=== PATIENT | male | born 1950 | race Caucasian/White ===

== ENCOUNTER → 2018-04-16 08:30 | Outpatient (CLI) | payer MEDICARE, SELFPAY ==
[2018-04-16 08:59] LABS: Blood Urea Nitrogen 14 mg/dL (7-18); Creatinine,Serum 0.84 mg/dL (0.70-1.30); Estimated Glomerular Filt Rate 91 ml/min (>60); GFR (African American) 110 ML/MIN (>60)
--- NOTE | 2018-04-16 09:09 | CT_ITS ---
CT abdomen w con INDICATION: ITS.REASON: NONALCOHOLIC FATTY LIVER ORDERING PHYSICIAN: Mason Baeza MD PATIENT AGE: 68 years COMPARISON: CT abdomen and pelvis from March 2015. & May 2004 TECHNIQUE: 75 cc [id number] were utilized with 3 phase scanning:. This includes early arterial scan, portal venous phase images as well as delayed images through abdomen. Abdomen only scant pelvis not included. No oral contrast utilized FINDINGS Lung bases are clear. No active disease. Heart is normal in size. Spleen, pancreas, unremarkable. Adrenal satisfactory, stable. LIVER previous studies from 2003 and 2014 showed diffuse fatty changes of the liver. There is a a focus of early arterial enhancement which persists on venous and delayed images. This area Seen at the anterior dome of liver. & measures up to nearly 25 mm wide x 15 mm AP, 2 cm height. It was not present in 2014 nor 2003. Most important feature is it does not persistent contrast lingering on the delayed 5 minute image set. This characteristic supports its benign indolent nature. (Discussion: Significant vascular lesions &neoplasm the liver, demonstrate contrast washout x 5 minute. This current pattern of lingering contrast at 5 minutes supports benign feature/indolent feature. Considerations: benign hemangioma of liver; particularly noting that the intensity on delayed image is similar to the background blood pool contrast density.. This area does not show peripherally seen with most liver hemangiomas but they can at times demonstrate rapid flash filling. . Focal fatty sparing is also a high possibility; but this pattern is a change since in 2014. This area can be followed. Benign Adenoma is also considered.. Doubt benign FNH . Small portal venous collateral leading anterior liver from region of falciform ligament and continuing towards umbilicus through anterior abdomen is again noted and unchanged... Seen on previous studies 2014, 2003.. Portal vein appears generous size measuring 15-16 mm AP but this is similar to 2015.. No additional unremarkable collaterals seen elsewhere & spleen is not enlarged. Kidneys. No tract obstruction or mass. Left kidney. The previously noted nonobstructive stone lower pole left kidney is seen in 2014 is no longer evident. The ureters are normal in course and caliber bilaterally. No bowel dilatation or obstruction. Appendix visualized and normal. No retroperitoneal or mesenteric adenopathy. There is a 2.3 cm x 1.3 cm ovoid mass just beneath the skin and subcutaneous tissues to the left of midline at the mid back. This is seen Just overlying the lowest ribs, axial slice 22. It has enlarged since previous studies and thus does warrant evaluation and correlation. Could merely be a benign sebaceous abnormality but nonspecific on CT IMPRESSION: ...... 1. Diffuse fatty changes in liver again observed. 2..Enhancing area anterior dome liver. 2.5 CM... Was not seen previous CT . early arterial enhancement reflects basilar character but it also demonstrates persistent enhancement on 5 minute delayed image set.-The latter features speaks to its benign character. Suspect it reflects benign hemangioma or a prominent area of focal fatty sparing. Benign Hepatic adenoma also considered. (. Suggest ultrasound to further survey although this area, although may be very difficult to visualize given its far anterior superior aspect towards the very dome of the liver).. Also suggest a follow-up CT or MRI liver with in 4-6 months suggested confirm stability at this early enhancing lesion. 3.Ovoid SQ mass beneath the skin at the left mid back, overlying lower ribs. It is larger than on 2015. . Most likely benign feature but warrants correlation decreased sensitivity has enlarged 4. Borderline
--- NOTE | 2018-04-16 10:33 | HMH.ITSHM ---
FLECARINIDE,BYSTOLIC,ELIQUIS,OLMESARTON AMLODI[INE,HCTZ,DOXASOSIN,ASPIRIN,POTASSIUM
== END ==
PROVIDERS: Family Provider Family Medicine; PCP Family Medicine; Visit Provider Family Medicine
DX: K76.0 Fatty (change of) liver, not elsewhere classified (principal)
CPT/HCPCS: 36415; 74160; 82565; 84520; Q9967

== ENCOUNTER → 2018-07-09 14:54 | Outpatient (CLI) | payer MEDICARE, SELFPAY ==
--- NOTE | 2018-07-09 14:55 | CA_ITS ---
PROCEDURE: 2-D M-mode and color Doppler study INDICATIONS FOR THE TEST: Chest pain COPD Heart Murmur Tobacco Smoking Palpitations Fatigue Syncope Edema Hypertension+Diabetes Mellitus Rheumatic Fever SOB+COOK Obesity Hyperlipidemia Family History HD Additional History abn ekg, a-fib, prior cardioversion 05/15 PATIENT INFORMATION HEIGHT: 70 WEIGHT:206 GENDER: Male B/P:135/83 2-D/M-MODE INTERPRETATION: 2-D MEASUREMENTS OBSERVED VALUES IN CMS Right Ventricular Dimension (RVDd) 0.9 Interventricular Septum (Thickness)(IVsd) 0.8 Left Ventricular Internal Dimensions(LVIDd) 5.3 Left Ventricular Posterior Wall (Thickness)(LVPWd) 1.2 Aortic Root 2.7 Aortic Cusp Separation 1.6 Left Atrial Dimensions (LAD) 4.1 2D 1. Left atrium is mildly enlarged, left ventricle is normal size, mild concentric left ventricular hypertrophy, visually estimated ejection fraction 55% with no regional wall motion abnormality. 2. The right atrium and right ventricle are normal size and contractility. 3. The aortic valve is minimally thickened and calcified. 4. The mitral and tricuspid valvular grossly normal. 5. The pulmonic valve is poorly visualized. 6. No significant pericardial effusion noted. DOPPLER INTERROGATION: Doppler interrogation of the aortic, mitral and tricuspid valvular presence of trace aortic, mild mitral and tricuspid regurgitation, tricuspid regurgitation jet velocity is inadequate for calculation of the right ventricular systolic pressure, grade 1 diastolic dysfunction seen with tissue Doppler evidence of raised left atrial pressure. CONCLUSION: 1. Mildly enlarged left atrium, normal left ventricular size, mild concentric left ventricular hypertrophy, visually estimated ejection fraction of 55% with no regional wall motion abnormality, grade 1 diastolic dysfunction seen with tissue Doppler evidence of raised left atrial pressure. 2. Trace aortic, mild mitral and tricuspid regurgitation 3. No significant pericardial effusion noted.
== END ==
PROVIDERS: PCP Family Medicine; Visit Provider Internal Medicine Cardiovascular Disease
DX: I10 Essential (primary) hypertension (principal); I48.92 Unspecified atrial flutter; N40.0 Benign prostatic hyperplasia without lower urinary tract symptoms; R06.00 Dyspnea, unspecified
CPT/HCPCS: 93306

== ENCOUNTER 2018-11-13 16:47 | Inpatient (IN) ==
--- NOTE | 2018-11-13 17:20 | Emergency Department Note ---
ED Disposition Clinical Impression: Rapid atrial fibrillation, Hypokalemia Disposition: Home, Self-Care Condition on Discharge: Fair - Critical Care Critical Care Time: Yes Attestation: On 11/13/18, the high probability of a clinically significant, sudden or life threatening deterioration of the following system(s) required my full and direct attention, intervention and personal management. The time I documented below is in addition to time spent performing reported procedures but includes the following listed in this critical care notation. Total Critical Care Time: 30 Vital system(s) involved:: Circulatory Failure My critical care processes included: Assessment & monitoring of V/S, Initial and Re-exams, Data Review/Interpretation, Coordinating Care, Medication Orders and management, Documentation Medical Decision Making - Jd Inquiry Pt receiving controlled substance: No Vital Signs: 11/13/18 17:13 11/13/18 19:35 Temperature 97.8 F Temperature Source Oral Pulse Rate [Right Brachial] 131 H 108 H Respiratory Rate 15 15 Blood Pressure [Right Arm] 132/98 H 144/103 H Blood Pressure Mean [Right Arm] 109 116 Blood Pressure Source [Right Arm] Automatic Cuff Blood Pressure Position [Right Arm] Sitting 02 Sat by Pulse Oximetry 100 93 L Oxygen Delivery Method Room Air Room Air - Lab Data Lab Results 11/13/18 17:10: WBC 9.2, RBC 5.02, Hgb 15.8, Hct 46.3, MCV 92.2, MCH 31.4 H, MCHC 34.1, RDW 12.7, Plt Count 132 L, MPV 7.9, Neut % (Auto) 75.8, Lymph % (Auto) 17.5, [place] % (Auto) 6.3, Eos % (Auto) 0.2, Baso % (Auto) 0.3, Neut # (Auto) 7.0, Lymph # (Auto) 1.6, [place] # (Auto) 0.6, Eos # (Auto) 0.0, Baso # (Auto) 0.0 11/13/18 17:10: Sodium 138, Potassium 2.9 L*, Chloride 98, Carbon Dioxide 30, Anion Gap 12.9, BUN 9, Creatinine 0.88, Estimated Creat Clear 76, Estimated GFR 86, Est GFR ( Amer) 105, Glucose 162 H, Calcium 9.3, Total Bilirubin 1.1 H, AST 144 H, ALT 224 H, Alkaline Phosphatase 68, Troponin I < 0.02, Total Protein 7.8, Albumin 3.8, Globulin 4.0 H, Albumin/Globulin Ratio 1.0 L, Digoxin 0.59 L Result diagrams: 11/13/18 17:10 11/13/18 17:10 Orders (Tests/Meds): ED MEDICATIONS Generic Name Dose Route Start Last Admin Trade Name Geraldq PRN Reason Stop Dose Admin Carvedilol 25 mg 11/13/18 21:00 Coreg 25mg Tablet PO 12/13/18 20:59 BID ABDIRIZAK Digoxin 125 mcg 11/14/18 09:00 Digoxin 0.125mg Tablet PO 12/14/18 08:59 DAILY ABDIRIZAK Sodium Chloride 1,000 mls @ 100 mls/hr 11/13/18 19:40 Sod Chlor 0.9% 1000ml Bag IV 12/13/18 18:29 .Q10H ABDIRIZAK Diltiazem HCl 100 mg/ Sodium 100 mls @ 5 mls/hr 11/13/18 19:40 Chloride IV 12/13/18 17:49 .Q20H [facility] Protocol Non-Formulary Medication 5 mg 11/13/18 21:00 Apixaban [Eliquis] PO 12/13/18 20:59 BID ABDIRIZAK Non-Formulary Medication 1 tab 11/14/18 09:00 Olmesartan/Amlodipin/Hcthiazid [Tbonxln-Anvmcq-Ieyi 40-5-25 Mg] PO 12/14/18 08:59 DAILY ABDIRIZAK Non-Formulary Medication 20 meq 11/13/18 21:00 Potassium Chloride [Potassium Chloride] PO 12/13/18 20:59 TID ABDIRIZAK Non-Formulary Medication 3 mg 11/13/18 21:00 Doxazosin Mesylate [Doxazosin 2mg Tab] PO 12/13/18 20:59 HS ABDIRIZAK Discontinued Medications Generic Name Dose Route Start Last Admin Trade Name Freq PRN Reason Stop Dose Admin Diltiazem HCl 10 mg 11/13/18 17:35 11/13/18 17:48 Cardizem 25mg/5ml Vial IV 11/13/18 17:36 10 mg ONCE ONE Administration Diltiazem HCl 10 mg 11/13/18 18:58 11/13/18 19:06 Cardizem 25mg/5ml Vial IV 11/13/18 18:59 10 mg ONCE ONE Administration Sodium Chloride 1,000 mls @ 999 mls/hr 11/13/18 17:30 11/13/18 17:24 Sod Chlor 0.9% 1000ml Bag IV 11/13/18 18:30 999 mls/hr .Q1H1M ABDIRIZAK Administration Diltiazem HCl 100 mg/ Sodium 100 mls @ 5 mls/hr 11/13/18 17:50 11/13/18 17:51 Chloride IV 12/13/18 17:49 5 mls/hr .Q20H ABDIRIZAK Administration Protocol Sodium Chloride 1,000 mls @ 100 mls/hr 11/13/18 18:30 11/13/18 18:24 Sod Chlor 0.9% 1000ml Bag IV 12/13/18 18:29 100 mls/hr .Q10H ABDIRIZAK Administration Potassium Chloride 40 meq 11/13/18 18:58 11/13/18 19:12 Klor-Con 20meq Tablet PO 11/13/18 18:59 40 meq ONCE ONE Administration Potassium Chloride/Water 20 meq 11/13/18 18:58 Potassium Chloride 20meq/100ml Ivpb IV 11/13/18 18:59 ONCE ONE Promethazine HCl 12.5 mg 11/13/18 18:18 11/13/18 18:19 Phenergan 25mg/Ml 1ml Vial IV 11/13/18 18:19 12.5 mg ONCE ONE Administration Sodium Chloride 25 ml 11/13/18 18:18 11/13/18 18:19 Sod Chlor 0.9% 25ml Bag IV 11/13/18 18:19 25 ml ONCE ONE Administration ORDERS Category Date Time Status XR chest portable Stat Exams 11/13/18 17:21 Taken - ECG Data Tracing #1 EKG interpreted by Jc Man MD: Rhythm: Atrial fibrillation with rapid ventricular response Rate: 142 [place]: normal Ectopy: none Conduction: normal ST Segment Changes: Nonspecific T Wave Changes: Nonspecific Q Waves: none No evidence of acute ischemia or injury Baseline artifact present, but I consider the EKG adequate for accurate interpretation. - Physician Consults Physician Consulted: Naveed Time: 19:09 Reason -: Cardiology Eval/Care Comment/Response: Continue diltiazem drip. Double dose of Bystolic to 20 mg daily. Resume Eliquis, starting tonight. Additional Consult: Areli Baeza Time: 19:25 Reason -: Admission Comment/Response: Agrees to admit the patient to the hospital. We discussed the patient's clinical information, including history, exam, laboratory and radiology results and ED course. Per hospital procedure, I will write temporary bridge inpatient orders on the patient. Specific orders requested by the admitting physician: Per cardiology General Adult HPI - General Stated complaint: Abnormal heartbeat Time Seen by Provider: 11/13/18 17:19 - History of Present Illness HPI narrative: Patient has known paroxysmal atrial fibrillation/flutter. Seen in this emergency department last . Flecainide was stopped and he was started on digoxin. On Monday he was admitted to [facility] for a liver ablation. He says that today he was not given his digoxin the morning at 7 AM as he would normally take it, but he did take it 1 PM. He is also late on his potassium dose. He was discharged from the hospital today on Levaquin. About 2 hours after arriving home after discharge today he developed a rapid heartbeat. Denies chest pain or shortness of breath. He has been off of Eliquis since last Monday 1 week ago, but was given a shot of Lovenox yesterday. He is on Levaquin 500 mg once a day since his procedure. - Related Data Home Medications Medication Instructions Recorded Confirmed Apixaban [Eliquis] 5 mg PO BID 05/17/18 11/08/18 Doxazosin Mesylate [Doxazosin 2mg 3 mg PO HS 05/17/18 11/08/18 Tab] Nebivolol HCl [Bystolic] 10 mg PO DAILY 05/17/18 11/08/18 Olmesartan/Amlodipin/Hcthiazid 1 tab PO DAILY 05/17/18 11/08/18 [Eyztvfy-Yprhzf-Vsrh 40-5-25 mg] potassium chloride ER 20 mEq 20 meq PO TID tab 07/05/18 11/08/18 tablet,extended release Previous Rx's Medication Instructions Recorded digoxin 125 mcg tablet 0.125 mg PO DAILY #30 tab 11/08/18 Allergies Allergy/AdvReac Type Severity Reaction Status Date / Time ibuprofen Allergy Unknown Verified 08/09/18 11:35 allergy reaction naproxen Allergy Unknown Verified 08/09/18 11:35 allergy reaction [facility] History - Hepatitis A Screen Attestation statement:: This patient has been screened for Hepatitis A risk factors. I have reviewed the patient's past medical history: Yes Medical History: Reports:: Atrial Fibrillation, Hepatitis, Hypertension Denies:: Diabetes Mellitus Type 1, Diabetes Mellitus Type 2, Internal Pacemaker Laterality Cases: Bilateral: Tonsillectomy Other Surgeries: Yes: Cholecystectomy, Colonoscopy, Other (Sarcome removed from Vas Deferens, Right testicle removed, Varicose Veins). No: Pacemaker Comment: Root canal - Social History Smoking Status: Former smoker Alcohol Intake: never Substance Use Type: denies use Occupational Status: retired Family Hx:: Cancer, Diabetes, Hypertension, Coronary Artery Disease Comment: Mother-ASD ROS Obtained: Yes All systems reviewed & no additional complaints - Constitutional Constitutional: Denies fever(s) - Cardiovascular Cardiovascular: Denies chest pain, Reports irregular heart rhythm, Reports rapid heart rate - Respiratory Respiratory: No dyspnea - Gastrointestinal Gastrointestingal: Denies: abdominal pain, vomiting Physical Exam - General General appearance: alert, in no apparent distress - Head Head exam: atraumatic, normocephalic - Eye Eye exam: Present: normal appearance, PERRL, EOMI - ENT ENT exam: Present: mucous membranes moist - Neck Neck exam: Present: normal inspection, trachea midline - Chest Chest inspection: Present: normal inspection, symmetric chest wall rise - Respiratory Respiratory exam: Present: normal lung sounds bilaterally. Absent: respiratory distress - Cardiovascular Cardiovascular exam: Present: tachycardia, irregular rhythm, normal heart sounds - Abdominal Exam Abdominal exam: Present: soft. Absent: distention, tenderness - Extremities Exam Extremities exam: Present: normal inspection, full ROM - Neurological Exam Neurological exam: Present: alert, oriented X3 - Psychiatric Psychiatric exam: Present: normal affect, normal mood - Skin Skin exam: Present: warm, dry
[2018-11-13 18:20] LABS: Basophils % 0.3 % (0.1-2.0); Eosinophils % 0.2 % (0.1-12.0); Hematocrit 46.3 % (42.0-52.0); Hemoglobin 15.8 g/dL (14.1-18.0); Lymphocytes # 1.6 K/mm3 (0.7-4.5); Lymphocytes % 17.5 % (10-50); Mean Corpuscular HGB Conc 34.1 g/dL (31.8-35.4); Mean Corpuscular Hemoglobin 31.4 pg (27.0-31.2); Mean Corpuscular Volume 92.2 fl (80-94); Mean Platelet Volume 7.9 fl (7.4-10.4); Monocytes # 0.6 K/mm3 (0.1-1.0); Monocytes % 6.3 % (1.7-9.3); Neutrophils % 75.8 % (37.0-80.0); Platelet Count 132 K/mm3 (142-424); Red Blood Count 5.02 M/mm3 (4.60-6.20); Red Cell Distribution Width 12.7 % (11.5-17.5); White Blood Count 9.2 K/mm3 (4.8-10.8)
[2018-11-13 18:29] LABS: Alanine Aminotransferase 224 U/L (12-78); Albumin Level 3.8 gm/dL (3.4-5.0); Alkaline Phosphatase 68 U/L (46-116); Anion Gap 12.9 mEq/L (5-15); Aspartate Amino Transferase 144 U/L (15-37); Bilirubin,Total 1.1 mg/dL (0.2-1.0); Blood Urea Nitrogen 9 mg/dL (7-18); Calcium 9.3 mg/dL (8.5-10.1); Carbon Dioxide 30 mmol/L (21.0-32.0); Chloride 98 mmol/L (98-107); Digoxin 0.59 ng/mL (0.90-2.00); Glucose 162 mg/dL (74-106); Sodium 138 mmol/L (136-145); Total Protein,Serum 7.8 gm/dL (6.4-8.2)
[2018-11-13 18:38] LABS: Potassium 2.9 mmoL/L (3.5-5.1)
[2018-11-14 06:15] LABS: Anion Gap 9.9 mEq/L (5-15); Calcium 8.4 mg/dL (8.5-10.1)
[2018-11-14 06:20] LABS: Potassium 2.9 mmoL/L (3.5-5.1)
--- NOTE | 2018-11-14 07:43 | Pharmacy Consult Notes ---
[facility] Pharmacy VTE Monitoring - Patient Demographics Admission date: 11/13/18 Report Date: 11/14/18 Time: 07:42 Allergies/Adverse Reactions: Patient Allergies ibuprofen Allergy (Verified 08/09/18 11:35) Unknown allergy reaction naproxen Allergy (Verified 08/09/18 11:35) Unknown allergy reaction Height: 1.78 m Weight: 91.626 kg Patient Problems: Current Active Problems Rapid atrial fibrillation (Acute) Hypokalemia (Acute) - VTE Risk Labs: VTE Related Lab Results Hgb 15.8 g/dL (14.1-18.0) 11/13/18 17:10 Hct 46.3 % (42.0-52.0) 11/13/18 17:10 Plt Count 132 K/mm3 (142-424) L 11/13/18 17:10 BUN 8 mg/dL (7-18) 11/14/18 05:17 Creatinine 0.60 mg/dL (0.70-1.30) L D 11/14/18 05:17 Estimated Creat Clear 93 mL/min (50-200) 11/14/18 05:17 Was VTE Risk Assessment Performed: Yes VTE Score: 4 VTE Risk Level: Low Risk - Prophylaxis VTE Prophylaxis Ordered?: Yes Types of VTE Prophylaxis: TEDS Knee High, Pharmacological Location of Applied Device: Bilateral Lower Extremeties Pharmacologic Type: Other (ELIQUIS) - VTE Diagnosis Confirmed Treatment or plan recommended: Continue Current Treatment
--- NOTE | 2018-11-14 08:33 | History & Physical Report ---
*Admission Date: 11/13/18 *Chief complaint: heart palpitations *History of present illness: Mr. Hurd is a 68-year-old white male with a history of paroxysmal atrial fib. He states over the past month he has had approximately 5 episodes of atrial fib. When he intially began having episodes, they were only lasting approximately 30 seconds, but last week, it lasted for 2 days and he presented to the emergency room. At that time, cardiology stopped his flecainide and started him on digoxin. He was doing well until Monday when he had a liver ablation for liver cancer. He states his medication was all held for this procedure and when he went home on Monday, he was sent home with a prescription for Levaquin. Yesterday around 4 PM he went into atrial fib. He presented to the emergency room and his heart rate was 130-135. He was started on a Cardizem drip and was given carvedilol. His potassium was found to be low, therefore it was replaced. He states he did convert back into normal sinus rhythm and his been in rhythm all night. He is feeling much better this morning. Cardiology has been c onsulted. [facility] History Medical History: Reports:: Arrhythmia, Atrial Fibrillation, Cancer (liver), Hepatitis, Hypertension, Palpitations Denies:: Diabetes Mellitus Type 1, Diabetes Mellitus Type 2, Internal Pacemaker, Transient Ischemic Attacks (TIA) *Have you ever received a pneumonia vaccine?: Yes *Have you received a flu vaccine this season?: Yes Other Medical History: Reports: Arthritis Laterality Cases: Bilateral: Tonsillectomy Other Surgeries: Yes: Cholecystectomy, Colonoscopy, Other (Sarcome removed from Vas Deferens, Right testicle removed, Varicose Veins). No: Pacemaker Fractures: Yes (hand, feet) Comment: Laparoscopy liver, Ablation of liver cancer - *Social History Educational Level: Attended [employer] Smoking Status: Former smoker Tobacco Type: cigarettes # Packs/Day (cigarettes): 1 Alcohol Intake: former Substance Use Type: denies use *Occupational Status:: retired Housing: house Household Members: spouse *Travel in the last 8 weeks: None - Psychiatric History Expresses thoughts of harming self/others: None Suicide Plan Description: No Plan Family Hx:: Cancer, Diabetes, Hypertension, Coronary Artery Disease Review of Systems - Constitutional Reports fever(s), Reports weakness, Denies chills - Eyes Denies blurry vision, Denies double vision - ENT Reports nasal congestion, Denies sore throat - *Cardiovascular Reports rapid, pounding, or irregular heartbeat, Denies chest pain, Denies shortness of breath - *Respiratory Denies cough, Denies shortness of breath - *Gastrointestinal Reports abdominal pain (RUQ), Reports nausea, Denies loose stools, Denies vomiting - *Genitourinary Reports urinary frequency, Denies difficulty urinating, Denies painful urination - *Musculoskeletal Denies joint pain, Denies body aches - *Neurologic Reports headache(s), Reports weakness, Denies dizziness Meds Home Medications Medication Instructions Recorded Confirmed Type Apixaban [Eliquis] 5 mg PO BID 05/17/18 11/13/18 History Doxazosin Mesylate [Doxazosin 2mg 3 mg PO HS 05/17/18 11/13/18 History Tab] Nebivolol HCl [Bystolic] 10 mg PO DAILY 05/17/18 11/13/18 History Olmesartan/Amlodipin/Hcthiazid 1 tab PO DAILY 05/17/18 11/13/18 History [Xfkvnik-Mssdfk-Tiuh 40-5-25 mg] potassium chloride ER 20 mEq 20 meq PO TID tab 07/05/18 11/13/18 History tablet,extended release digoxin 125 mcg tablet 0.125 mg PO DAILY #30 tab 11/08/18 11/13/18 Rx Allergies Allergy/AdvReac Type Severity Reaction Status Date / Time ibuprofen Allergy Unknown Verified 08/09/18 11:35 allergy reaction naproxen Allergy Unknown Verified 08/09/18 11:35 allergy reaction Exam Vital signs and Labs for Last 24 Hours: Temp Pulse Resp BP Pulse Ox 98.4 F 63 19 130/69 93 L 11/14/18 00:26 11/14/18 06:00 11/14/18 06:00 11/14/18 06:00 11/14/18 06:00 Laboratory Results - last 24 hr 11/13/18 17:10: WBC 9.2, RBC 5.02, Hgb 15.8, Hct 46.3, MCV 92.2, MCH 31.4 H, MCHC 34.1, RDW 12.7, Plt Count 132 L, MPV 7.9, Neut % (Auto) 75.8, Lymph % (Auto) 17.5, [place] % (Auto) 6.3, Eos % (Auto) 0.2, Baso % (Auto) 0.3, Neut # (Auto) 7.0, Lymph # (Auto) 1.6, [place] # (Auto) 0.6, Eos # (Auto) 0.0, Baso # (Auto) 0.0 11/13/18 17:10: Sodium 138, Potassium 2.9 L*, Chloride 98, Carbon Dioxide 30, Anion Gap 12.9, BUN 9, Creatinine 0.88, Estimated Creat Clear 76, Estimated GFR 86, Est GFR ( Amer) 105, Glucose 162 H, Calcium 9.3, Total Bilirubin 1.1 H, AST 144 H, ALT 224 H, Alkaline Phosphatase 68, Troponin I < 0.02, Total Protein 7.8, Albumin 3.8, Globulin 4.0 H, Albumin/Globulin Ratio 1.0 L, Digoxin 0.59 L 11/13/18 22:48: Troponin I < 0.02 11/14/18 01:46: Troponin I < 0.02 11/14/18 05:17: Sodium 140, Potassium 2.9 L*, Chloride 104, Carbon Dioxide 29, Anion Gap 9.9, BUN 8, Creatinine 0.60 L D, Estimated Creat Clear 93, Estimated GFR 134, Est GFR ( Amer) 163 D, Glucose 135 H, Calcium 8.4 L I & O for Last 24 hours: Intake & Output 11/11/18 11/12/18 11/13/18 11/14/18 11:59 11:59 11:59 11:59 Intake Total 3436 / 3436 Output Total 1400 / 1400 Balance 2035 / 2035 Weight 202 lb - Constitutional no acute distress - *Routine HEENT Exam Head: Present: normocephalic Eye: Present: EOMI, PERRL ENT: Present: mucous membranes dry - *Routine Neck Exam Present: supple. Absent: lymphadenopathy - *Routine Respiratory Exam Present: CTA bilaterally - *Routine Cardiovascular Exam Present: RRR - *Routine Abdominal Exam Present: soft, normoactive bowel sounds, tenderness (around recent surgical site) - *Routine Extremities Exam Absent: cyanosis, clubbing, edema - *Routine Skin Exam Present: warm, ecchymosis (RUQ). Absent: rash - *Routine Neurological Exam Present: alert, oriented X3 H&P: Result - Impressions CXR 1. Right basilar atelectasis. 2. Left basilar density which may be due to atelectasis. 3. suggest upright PA and lateral chest Assessment and Plan (1) Rapid atrial fibrillation Current visit: Yes Status: Acute Category: Medical Code(s): I48.91 - Unspecified atrial fibrillation (2) Hypokalemia Current visit: Yes Status: Acute Category: Medical Code(s): E87.6 - Hypokalemia (3) BPH (benign prostatic hyperplasia) Current visit: No Status: Chronic Qualifiers: Lower urinary tract symptom presence: unspecified whether lower urinary tract symptoms present Qualified Code(s): N40.0 - Benign prostatic hyperplasia without lower urinary tract symptoms Category: Medical Code(s): N40.0 - Benign prostatic hyperplasia without lower urinary tract symptoms (4) Hypertension Current visit: No Status: Chronic Qualifiers: Hypertension type: essential hypertension Qualified Code(s): I10 - Essential (primary) hypertension Category: Medical Code(s): I10 - Essential (primary) hypertension (5) VALVERDE (nonalcoholic steatohepatitis) Current visit: No Status: Chronic Category: Medical Code(s): K75.81 - Nonalcoholic steatohepatitis (VALVERDE) (6) Liver cancer Current visit: Yes Status: Chronic Category: Medical Code(s): C22.9 - Malignant neoplasm of liver, not specified as primary or secondary - Assessment and plan all Dx Assessment and Plan for all problems:: Patient's potassium was low on repeat labs. He was given a run this morning was started on 20 mEq 3 times daily. We will recheck the potassium at noon. Patient is now in normal sinus rhythm and cardiology has been consulted for further recommendations.
--- NOTE | 2018-11-14 10:01 | Consult Report ---
History of Present Illness Consult date: 11/14/18 Requesting physician: Mason Baeza Consult reason: atrial fibrillation Chief complaint: Palpitations, atrial fibrillation History of present illness: This is a 68-year-old white male who presented to the emergency department with complaints of palpitations and racing of the heart. The patient does have a history of paroxysmal atrial fibrillation. He has had several episodes in the past month. The patient had similar episodes last week lasting approximately 30 seconds. He states that this went on for 2 days and he did go to the emergency department. His flecainide was stopped and he was started on digoxin. He had did fine with his atrial fibrillation up until that point. On Monday the patient had a liver ablation for his liver cancer and his medications were held for that procedure. He states he went home and on Monday he felt his heart go back into atrial fibrillation with palpitations and racing of the heart. The patient decided to come into the emergency department and his heart rate was in the 140s. He was started on a diltiazem drip. He did convert to sinus rhythm. He has since been converted to oral Cardizem CD and remains in sinus rhythm. While here in the hospital the patient has been getting carvedilol as his beta- blockade. He reports that he is tolerating this medicine much better than the by systolic he is on at home. He states that when he is on Bystolic at home his heart tends to race more often. Upon admission, he was also found to be hypokalemic and remains hypokalemic today. He is getting his potassium repleted per his primary care provider. He denies any chest pain or pressure. He denies any shortness of breath or edema. He denies any fever chills nausea vomiting diarrhea PND or orthopnea. [facility] History I have reviewed the patient's past medical history: Yes Medical History: Reports:: Arrhythmia, Atrial Fibrillation, Cancer (liver), Hepatitis, Hypertension, Palpitations Denies:: Diabetes Mellitus Type 1, Diabetes Mellitus Type 2, Internal Pacemaker, Transient Ischemic Attacks (TIA) *Have you ever received a pneumonia vaccine?: Yes *Have you received a flu vaccine this season?: Yes Other Medical History: Reports: Arthritis Laterality Cases: Bilateral: Tonsillectomy Other Surgeries: Yes: Cholecystectomy, Colonoscopy, Other (Sarcome removed from Vas Deferens, Right testicle removed, Varicose Veins). No: Pacemaker Fractures: Yes (hand, feet) - *Social History Educational Level: Attended [employer] Smoking Status: Former smoker Tobacco Type: cigarettes # Packs/Day (cigarettes): 1 Alcohol Intake: former Substance Use Type: denies use *Occupational Status:: retired Housing: house Household Members: spouse *Travel in the last 8 weeks: None - Psychiatric History Expresses thoughts of harming self/others: None Suicide Plan Description: No Plan Family Hx:: Cancer, Diabetes, Hypertension, Coronary Artery Disease Meds Home Medications Medication Instructions Recorded Confirmed Type Apixaban [Eliquis] 5 mg PO BID 05/17/18 11/13/18 History Nebivolol HCl [Bystolic] 10 mg PO HS 05/17/18 11/14/18 History Olmesartan/Amlodipin/Hcthiazid 1 tab PO DAILY 05/17/18 11/13/18 History [Haaomji-Kdzskd-Tshp 40-5-25 mg] potassium chloride ER 20 mEq 20 meq PO TID tab 07/05/18 11/13/18 History tablet,extended release digoxin 125 mcg tablet 0.125 mg PO DAILY #30 tab 11/08/18 11/13/18 Rx Doxazosin Mesylate [Doxazosin 2mg 4 mg PO HS 11/14/18 11/14/18 History Tab] Allergies Allergy/AdvReac Type Severity Reaction Status Date / Time ibuprofen Allergy Unknown Verified 08/09/18 11:35 allergy reaction naproxen Allergy Unknown Verified 08/09/18 11:35 allergy reaction Review of Systems - Review of Systems Review of systems:: pertinent systems reviewed and negative unless documented below - *Cardiovascular Reports fast heart rate - *Neurologic Reports headache(s), Reports weakness, Denies dizziness Exam Vital signs and Labs for Last 24 Hours: Temp Pulse Resp BP Pulse Ox 98.4 F 68 18 135/79 93 L 11/14/18 00:26 11/14/18 08:35 11/14/18 08:00 11/14/18 08:00 11/14/18 08:35 Laboratory Results - last 24 hr 11/13/18 17:10: WBC 9.2, RBC 5.02, Hgb 15.8, Hct 46.3, MCV 92.2, MCH 31.4 H, MCHC 34.1, RDW 12.7, Plt Count 132 L, MPV 7.9, Neut % (Auto) 75.8, Lymph % (Auto) 17.5, Collier % (Auto) 6.3, Eos % (Auto) 0.2, Baso % (Auto) 0.3, Neut # (Auto) 7.0, Lymph # (Auto) 1.6, Collier # (Auto) 0.6, Eos # (Auto) 0.0, Baso # (Auto) 0.0 11/13/18 17:10: Sodium 138, Potassium 2.9 L*, Chloride 98, Carbon Dioxide 30, Anion Gap 12.9, BUN 9, Creatinine 0.88, Estimated Creat Clear 76, Estimated GFR 86, Est GFR ( Amer) 105, Glucose 162 H, Calcium 9.3, Total Bilirubin 1.1 H, AST 144 H, ALT 224 H, Alkaline Phosphatase 68, Troponin I < 0.02, Total Protein 7.8, Albumin 3.8, Globulin 4.0 H, Albumin/Globulin Ratio 1.0 L, Digoxin 0.59 L 11/13/18 22:48: Troponin I < 0.02 11/14/18 01:46: Troponin I < 0.02 11/14/18 05:17: Sodium 140, Potassium 2.9 L*, Chloride 104, Carbon Dioxide 29, Anion Gap 9.9, BUN 8, Creatinine 0.60 L D, Estimated Creat Clear 93, Estimated GFR 134, Est GFR ( Amer) 163 D, Glucose 135 H, Calcium 8.4 L I & O for Last 24 hours: Intake & Output 11/11/18 11/12/18 11/13/18 11/14/18 23:59 23:59 23:59 23:59 Intake Total 1999 1436 / 1436 Output Total 999 400 / 400 Balance 999 / 999 1036 / 1036 Weight 201 lb 202 lb Narrative: His EKG shows atrial fibrillation with rapid ventricular response, rate of [address] and T wave abnormalities. His telemetry strip shows sinus rhythm with a rate of 74. - Constitutional no acute distress, average body habitus - *Routine HEENT Exam Head: Present: normocephalic, atraumatic Eye: Present: EOMI, PERRL ENT: Present: mucous membranes moist - *Routine Neck Exam Present: supple, full ROM, normal carotid upstroke. Absent: JVD, carotid bruit, lymphadenopathy - *Routine Respiratory Exam Present: CTA bilaterally - *Routine Cardiovascular Exam Present: RRR, Normal S1, Normal S2. Absent: murmur, gallop - *Routine Abdominal Exam Present: soft, normoactive bowel sounds. Absent: tenderness, distended - *Routine Extremities Exam Present: full ROM, pulses intact, normal capillary refill. Absent: cyanosis, clubbing, edema - *Routine Skin Exam Present: intact, warm. Absent: erythema, rash - *Routine Neurological Exam Present: alert, oriented X3, CN II-XII intact. Absent: sensory deficit, motor deficit - Routine Psychiatric Exam Present: normal affect, normal thought process - Detailed Eye Exam Eyelids: Left normal inspection Assessment and Plan (1) Rapid atrial fibrillation Current visit: Yes Status: Acute Category: Medical Code(s): I48.91 - Unspecified atrial fibrillation (2) Hypokalemia Current visit: Yes Status: Acute Category: Medical Code(s): E87.6 - Hypokalemia (3) BPH (benign prostatic hyperplasia) Current visit: No Status: Chronic Qualifiers: Lower urinary tract symptom presence: unspecified whether lower urinary tract symptoms present Qualified Code(s): N40.0 - Benign prostatic hyperplasia without lower urinary tract symptoms Category: Medical Code(s): N40.0 - Benign prostatic hyperplasia without lower urinary tract symptoms (4) Hypertension Current visit: No Status: Chronic Qualifiers: Hypertension type: essential hypertension Qualified Code(s): I10 - Essential (primary) hypertension Category: Medical Code(s): I10 - Essential (primary) hypertension (5) VALVERDE (nonalcoholic steatohepatitis) Current visit: No Status: Chronic Category: Medical Code(s): K75.81 - Nonalcoholic steatohepatitis (VALVERDE) (6) Liver cancer Current visit: Yes Status: Chronic Category: Medical Code(s): C22.9 - Malignant neoplasm of liver, not specified as primary or secondary - Assessment and plan all Dx Assessment and Plan for all problems:: Plan: 1. The patient was admitted to the hospital with atrial fibrillation with RVR. He was started on a diltiazem drip and then converted over to oral Cardizem CD. He has converted to sinus rhythm and remains in sinus rhythm this morning. We will continue him on Cardizem CD 240 mg daily. We will also continue his digoxin. 2. The patient is taking carvedilol 25 mg p.o. twice daily here while he is in the hospital. He states that he is tolerating this medication much better than the Bystolic he takes at home. We will discontinue his Bystolic at home and send him home with carvedilol 25 mg p.o. twice daily. 3. The patient is on long-term anticoagulation with Eliquis. 4. His blood pressure is well controlled. 5. His LDL goal is less than 100. 6. The patient does have liver cancer for which he is status post liver ablation. 7. The patient was hypokalemic when he came into the hospital. His potassium remains at 2.9 today. He is getting his potassium repleted per his primary care provider. They do have plans to recheck his potassium level at noon. 8. The patient is stable for discharge home today from a cardiac standpoint as long as his potassium has improved on recheck. Will need to follow-up in [address] SANTIAGO. Thank you for the opportunity to help participate in the care of this patient.
--- NOTE | 2018-11-14 18:27 | Progress Note ---
Internal Medicine - PN: Subj *Date: 11/14/18 *Time: 18:25 Interval history: He is stable for discharge. Cardiology wants him to continue on carvedilol 25 mg twice daily instead of the Bystolic. They also suggested continuing Cardizem CD 240 mg a day. They did not address the issue of the amlodipine that he was already on. I will discontinue the combination medication that includes amlodipine and instead prescribe valsartan 160/Hydrochlorothiazide 12.5 daily. Exam Vital signs and Labs for Last 24 Hours: Temp Pulse Resp BP Pulse Ox 98.4 F 60 15 133/64 93 L 11/14/18 15:56 11/14/18 16:00 11/14/18 15:56 11/14/18 15:56 11/14/18 15:56 Laboratory Results - last 24 hr 11/13/18 17:10: Sodium 138, Potassium 2.9 L*, Chloride 98, Carbon Dioxide 30, Anion Gap 12.9, BUN 9, Creatinine 0.88, Estimated Creat Clear 76, Estimated GFR 86, Est GFR ( Amer) 105, Glucose 162 H, Calcium 9.3, Total Bilirubin 1.1 H, AST 144 H, ALT 224 H, Alkaline Phosphatase 68, Troponin I < 0.02, Total Protein 7.8, Albumin 3.8, Globulin 4.0 H, Albumin/Globulin Ratio 1.0 L, Digoxin 0.59 L 11/13/18 22:48: Troponin I < 0.02 11/14/18 01:46: Troponin I < 0.02 11/14/18 05:17: Sodium 140, Potassium 2.9 L*, Chloride 104, Carbon Dioxide 29, Anion Gap 9.9, BUN 8, Creatinine 0.60 L D, Estimated Creat Clear 93, Estimated GFR 134, Est GFR ( Amer) 163 D, Glucose 135 H, Calcium 8.4 L 11/14/18 12:46: Potassium 3.6 D I & O for Last 24 hours: Intake & Output 11/12/18 11/13/18 11/14/18 11/15/18 11:59 11:59 11:59 11:59 Intake Total 3436 / 3436 710 / 710 Output Total 1650 / 1650 700 / 700 Balance 1786 / 1786 Weight 202 lb Assessment and Plan (1) Rapid atrial fibrillation Current visit: Yes Status: Acute Category: Medical Code(s): I48.91 - Unspecified atrial fibrillation (2) Hypokalemia Current visit: Yes Status: Acute Category: Medical Code(s): E87.6 - Hypokalemia (3) BPH (benign prostatic hyperplasia) Current visit: No Status: Chronic Qualifiers: Lower urinary tract symptom presence: unspecified whether lower urinary tract symptoms present Qualified Code(s): N40.0 - Benign prostatic hyperplasia without lower urinary tract symptoms Category: Medical Code(s): N40.0 - Benign prostatic hyperplasia without lower urinary tract symptoms (4) Hypertension Current visit: No Status: Chronic Qualifiers: Hypertension type: essential hypertension Qualified Code(s): I10 - Essential (primary) hypertension Category: Medical Code(s): I10 - Essential (primary) hypertension (5) VALVERDE (nonalcoholic steatohepatitis) Current visit: No Status: Chronic Category: Medical Code(s): K75.81 - Nonalcoholic steatohepatitis (VALVERDE) (6) Liver cancer Current visit: Yes Status: Chronic Category: Medical Code(s): C22.9 - Malignant neoplasm of liver, not specified as primary or secondary - Assessment and plan all Dx Assessment and Plan for all problems:: I will see him in follow-up in the office next week. He is also to follow-up with Dr. Moreno following week.
--- NOTE | 2018-11-14 21:34 | Discharge Summary ---
General - General Admission date:: 11/13/18 Discharge date: 11/14/18 HPI HPI: Mr. Hurd is a 68-year-old white male with a history of paroxysmal atrial fib. He states over the past month he has had approximately 5 episodes of atrial fib. When he intially began having episodes, they were only lasting approximately 30 seconds, but last week, it lasted for 2 days and he presented to the emergency room. At that time, cardiology stopped his flecainide and started him on digoxin. He was doing well until Monday when he had a liver ablation for liver cancer. He states his medication was all held for this procedure and when he went home on Monday, he was sent home with a prescription for Levaquin. Yesterday around 4 PM he went into atrial fib. He presented to the emergency room and his heart rate was 130-135. He was started on a Cardizem drip and was given carvedilol. His potassium was found to be low, therefore it was replaced. He states he did convert back into normal sinus rhythm and his been in rhythm all night. He is feeling much better this morning. Cardiology has been consulted. Hospital Course Hospital Course: The patient was started on a diltiazem drip. He did convert to sinus rhythm. He was converted to oral Cardizem CD and remained in sinus rhythm. He had been getting carvedilol as his beta-blockade and reported that he was tolerating this medicine much better than the bystolic he was on at home. He stated that when he was on Bystolic at home his heart tended to race more often. Upon admission, he was also found to be hypokalemic and was given a run of potassium and started on oral potassium supplementation. His potassium normalized to 3.6. Cardiology wanted him to continue Cardizem CD 240 mg daily. They also wanted him to continue his digoxin and carvedilol 25 mg p.o. twice daily. He was also to continue on long-term anticoagulation with Eliquis. They felt he was stable to be discharged home and will need to follow-up in 1 to [address] Baeza discontinued the combination medication that included amlodipine and instead prescribed valsartan 160/Hydrochlorothiazide 12.5 daily. Objective Vital signs: Temp Pulse Resp BP Pulse Ox 98.4 F 60 15 133/64 93 L 11/14/18 15:56 11/14/18 16:00 11/14/18 15:56 11/14/18 15:56 11/14/18 15:56 Narrative: - Constitutional no acute distress - *Routine HEENT Exam Head: Present: normocephalic Eye: Present: EOMI, PERRL ENT: Present: mucous membranes dry - *Routine Neck Exam Present: supple. Absent: lymphadenopathy - *Routine Respiratory Exam Present: CTA bilaterally - *Routine Cardiovascular Exam Present: RRR - *Routine Abdominal Exam Present: soft, normoactive bowel sounds, tenderness (around recent surgical site) - *Routine Extremities Exam Absent: cyanosis, clubbing, edema - *Routine Skin Exam Present: warm, ecchymosis (RUQ). Absent: rash - *Routine Neurological Exam Present: alert, oriented X3 Results Labs on day of discharge: Labs from last 24 hours 11/14/18 11/14/18 11/14/18 12:46 05:17 01:46 Sodium 140 Potassium 3.6 D 2.9 L* Chloride 104 Carbon Dioxide 29 Anion Gap 9.9 BUN 8 Creatinine 0.60 L D Estimated Creat Clear 93 Estimated GFR 134 Est GFR ( Amer) 163 D Glucose 135 H Calcium 8.4 L Troponin I < 0.02 11/13/18 22:48 Sodium Potassium Chloride Carbon Dioxide Anion Gap BUN Creatinine Estimated Creat Clear Estimated GFR Est GFR ( Amer) Glucose Calcium Troponin I < 0.02 DS: Diagnosis - Discharge Diagnosis (1) Rapid atrial fibrillation Status: Acute (2) Hypokalemia Status: Acute (3) BPH (benign prostatic hyperplasia) Status: Chronic (4) Hypertension Status: Chronic (5) VALVERDE (nonalcoholic steatohepatitis) Status: Chronic (6) Liver cancer Status: Chronic Discharge Plan - Patient Discharge Instructions ACTIVITY: Limited activity DIET: continue same diet Additional Instructions: MAKE AN APPOINTMENT WITH [facility] IN 1-2 WEEKS IN THE MORNING. START NEW HOME MEDICATIONS INSTRUCTED. RETURN WITH ANY WORSENING OR RETURN OF SYMPTOMS. Patient Instructions: Atrial Fibrillation, Tachycardia, DI for Atrial Fibrillation, DI for Hypokalemia, Hypokalemia - Follow up Plan Follow up with: Mason Baeza MD [Primary Care Provider] - 11/21/18 Unknown provider or service follow up:: 11/14/18 18:[address] Fitch in 2 weeks Disposition: Home, Self-[facility] Medications: Home Medications Medication Instructions Recorded Confirmed Type Apixaban [Eliquis] 5 mg PO BID 05/17/18 11/13/18 History potassium chloride ER 20 mEq 20 meq PO TID tab 07/05/18 11/13/18 History tablet,extended release digoxin 125 mcg tablet 0.125 mg PO DAILY #30 tab 11/08/18 11/13/18 Rx Carvedilol [Coreg 25mg Tablet] 25 mg PO BID #60 tablet 11/14/18 Rx Doxazosin Mesylate [Doxazosin 2mg 3 mg PO HS 11/14/18 11/14/18 History Tab] Valsartan/Hydrochlorothiazide 1 each PO DAILY #30 tablet 11/14/18 Rx [Valsartan-Hctz 160-12.5 mg Tab] dilTIAZem HCl [Cardizem ER 240mg 240 mg PO DAILY #30 cap.er.24h 11/14/18 Rx Capsule] Prescriptions/Medication Reconciliation: New dilTIAZem HCl [Cardizem ER 240mg Capsule] 240 mg PO DAILY #30 cap.er.24h Valsartan/Hydrochlorothiazide [Valsartan-Hctz 160-12.5 mg Tab] 1 each PO DAILY #30 tablet Carvedilol [Coreg 25mg Tablet] 25 mg PO BID #60 tablet Continue potassium chloride ER 20 mEq tablet,extended release 20 meq PO TID tab digoxin 125 mcg tablet 0.125 mg PO DAILY #30 tab Apixaban [Eliquis] 5 mg PO BID Doxazosin Mesylate [Doxazosin 2mg Tab] 3 mg PO HS Discontinued Olmesartan/Amlodipin/Hcthiazid [Kwfcjdh-Jfgmdh-Ibzc 40-5-25 mg] 1 tab PO DAILY Nebivolol HCl [Bystolic] 10 mg PO HS
== END 2018-11-14 19:05 | disposition home or self-care (01) | DRG 309 ==
LOC: ER 16:47 → 2ND 19:24
PROVIDERS: ADMIT Family Medicine; ATTEND Family Medicine

== ENCOUNTER → 2018-11-16 16:21 | Outpatient (CLI) | payer MEDICARE, SELFPAY ==
--- NOTE | 2018-11-16 | XR_ITS ---
XR chest 2V HISTORY: ITS.REASON: RESP CRACKLES RIGHT LUNG BASE ORDERING PHYSICIAN: ZHEN Moran PATIENT AGE: 68 years COMPARISON: 11/13/2018 FINDINGS: The cardiomediastinal silhouette and pulmonary vascularity are within normal limits. The right hemidiaphragm is slightly elevated. The previously noted atelectatic changes in the perihilar region have improved. There is now patchy density in the right lung base along the hemidiaphragm and right middle lobe consistent with atelectasis or infiltrate with small effusion. The left basilar airspace disease has also improved. IMPRESSION: Atelectasis or infiltrate in the right lung base and right middle lobe with small right effusion and elevated right hemidiaphragm
== END ==
PROVIDERS: PCP Family Medicine; Visit Provider Physician Assistant
DX: R09.89 Other specified symptoms and signs involving the circulatory and respiratory systems (principal)
CPT/HCPCS: 71046

== ENCOUNTER → 2019-10-21 14:39 | Outpatient (CLI) | payer MEDICARE, SELFPAY ==
--- NOTE | 2019-10-21 15:13 | ECG_ITS ---
APPROVED REPORT Exam: Resting ECG HR:104 bpm ECG Measurements Heart Rate 104 AXES QRSd 102 QRS 51 QT 306 T 40 QTc 402 <Conclusion> Atrial fibrillation with rapid ventricular response Poor R Wave Progression Abnormal ECG Electronically signed by : Pawan Ty, 10/21/2019 16:50:19
== END ==
PROVIDERS: PCP Family Medicine; Visit Provider Family Medicine
DX: I48.0 Paroxysmal atrial fibrillation (principal)
CPT/HCPCS: 93005